=== PATIENT | male | born 1960 | race Caucasian/White ===

== ENCOUNTER 2019-06-16 00:08 | Emergency (ER) | payer OTHER ==
[~2019-06-16] VITALS: Ht 170.2 cm; Wt 156.1 kg
[2019-06-16 00:19] VITALS: Ht 170.2 cm; Wt 156.1 kg
[2019-06-16 01:16] LABS: BASOPHIL % 1.2 % (0-2); CARBON DIOXIDE 27.7 mmol/L (21-32); CHLORIDE SERUM 105 mmol/L (98-107); CREATININE SERUM 0.9 mg/dL (0.7-1.3); GFR1 > 60 mL/min; GLUCOSE SERUM 134 mg/dL (74-106); PLATELET COUNT 262 x10^3mcL (130-400); POTASSIUM SERUM 3.9 mmol/L (3.5-5.1); RED CELL DISTRIBUTION WIDTH 14.2 % (11.5-14.5); SODIUM SERUM 140 mmol/L (136-145)
[2019-06-16 01:21] LABS: ALKALINE PHOSPHATASE 67 U/L (46-116); ALT/SGPT 35 U/L (16-63); AST/SGOT 24 U/L (15-37); TOTAL PROTEIN, SERUM 6.4 g/dL (6.4-8.2)
[2019-06-16 01:22] LABS: ALBUMIN 3.3 g/dL (3.4-5.0)
[2019-06-16 02:16] VITALS: BP 129/62
== END 2019-06-16 02:16 | disposition home or self-care (01) ==
LOC: ED 00:08
PROVIDERS: Emergency Medicine
DX: R22.41 Localized swelling, mass and lump, right lower limb (principal); M79.604 Pain in right leg; I10 Essential (primary) hypertension; E11.9 Type 2 diabetes mellitus without complications
CPT/HCPCS: 36415; Q0092